=== PATIENT | female | born 1975 | race African-American/Black ===

== ENCOUNTER → 2017-03-26 | Outpatient (CLI) | payer BC ==
[~2017-03-26] MED LIST: NO ROUTINE MEDS; TIZA4TAB4 PO
--- NOTE | 2017-03-26 09:33 | DI ---
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 Findings: Hepatic parenchyma is homogeneous without evidence for focal mass. The gallbladder is normal. There is no wall thickening, pericholecystic fluid, sonographic Concepcion's sign or cholelithiasis. Both the intra and extrahepatic biliary system are of normal caliber with the common duct measuring 2 mm in dimension. Visualized portions of the head and body of the pancreas are unremarkable. The right kidney is present without collecting system dilatation. The right kidney measures 10 cm in length. Impression: Normal right upper quadrant sonogram. .
== END ==
LOC: IMA 07:00
PROVIDERS: ATTEND Family Medicine
DX: B18.1 Chronic viral hepatitis B without delta-agent (principal)